=== PATIENT | female | born 1970 | race Caucasian/White ===

== ENCOUNTER 2017-03-14 11:26 | Emergency (ER) | payer OTHER ==
[~2017-03-14] VITALS: Ht 175.3 cm; Wt 71.5 kg
[~2017-03-14 11:26] MED LIST: MAXA10TA2 PO; SERT100 PO
[2017-03-14 11:29] VITALS: BP 84/57; PULSE 64; RESP 15; TEMP 98.1; O2SAT 100
[2017-03-14] MEDS ORDERED: ZOLO100T PO (11:40)
[2017-03-14] MEDS ORDERED: LIDOCAINE 1%/EPINEPHrine 1:100,000 SOLN 20 ML VIAL INFIL ONE (11:45)
[2017-03-14] MEDS ORDERED: TETANUS/DIPHTHERIA TOXOID ADULT 0.5 ML VIAL IM ONE (11:45)
[2017-03-14] MEDS ORDERED: DOXY100C PO (12:33)
--- NOTE | 2017-03-14 12:33 | PD ---
HPI Chief Complaint: Laceration/Skin Injury Time Seen by Provider: 12:13 Travel History International Travel<30 days: No Contact w/Intl Traveler<30days: No Traveled to known affect area: No History of Present Illness HPI 47-year-old female presents the emergency Department with laceration to the right lateral wrist, and multiple abrasions to the palms of both hands. Patient states she was kayaking with her brother, and was trying to get back into her kayaking when she slipped and fell backwards onto some oyster shells which cut her wrists and hands. Patient states she went home and showered and washed the blood and water as much as possible. She is here due to her laceration on the right lateral wrist. Patient is also needed a tetanus. Bleeding is currently controlled. Her pain is minimal. She has no known drug allergies. PFSH Past Medical History Depression: Yes Cancer: Yes (LIP) Cardiovascular Problems: Yes Diabetes: No Diminished Hearing: No Glaucoma: No Headaches: Yes (migraines) Hepatitis: No Hiatal Hernia: No Hypertension: Yes Inguinal Hernia: Yes Medical other: Yes (MIGRAINES) Immunizations Current: No Migraines: Yes Thyroid Disease: No Tetanus Vaccination: > 5 Years Influenza Vaccination: No ?: Not LMP: 2 WEEKS (STATED 03/14/17) : 2 Para: 2 Past Surgical History Abdominal Surgery: Yes (HERNIA REPAIR X 2; INGUINAL AND UMBILICAL) Appendectomy: Yes Cholecystectomy: Yes Genitourinary Surgery: Yes (HERNIA REPAIR X 2; INGUINAL AND UMBILICAL) Pacemaker: No Other Surgery: Yes Social History Alcohol Use: Yes (RARE) Tobacco Use: No Substance Use: No Allergies-Medications (Allergen,Severity, Reaction): Coded Allergies: No Known Allergies (Verified , 03/14/17) Reported Meds & Prescriptions Reported Meds & Active Scripts Active Doxycycline Hyclate 100 Mg Cap 100 Mg PO BID Reported Zoloft (Sertraline HCl) 100 Mg Tab 150 Mg PO DAILY Review of Systems Except as stated in HPI: all other systems reviewed are Neg General / Constitutional: No: Fever Eyes: No: Visual changes HENT: No: Headaches Cardiovascular: No: Chest Pain or Discomfort Respiratory: No: Shortness of Breath Gastrointestinal: No: Abdominal Pain Genitourinary: No: Dysuria Musculoskeletal: No: Pain Skin: Positive Lesions (see history present illness.), No Rash Neurologic: No: Weakness Psychiatric: No: Depression Endocrine: No: Polydipsia Hematologic/Lymphatic: No: Easy Bruising Physical Exam Narrative GENERAL: Patient appears in no acute distress. SKIN: Warm and dry. Normal color. Normal turgor. Patient has multiple superficial linear abrasions to both palms and the right base of the fifth finger, as well as a more significant full-thickness laceration to the right distal lateral wrist which does not involve any of the underlying muscle or tendon layers. All bleeding is currently controlled. HEAD: Atraumatic. Normocephalic. EYES: Pupils equal and round. No scleral icterus. No injection or drainage. ENT: No nasal bleeding or discharge. Mucous membranes pink and moist. Pharynx is clear. NECK: Trachea midline. Supple and nontender. CARDIOVASCULAR: Regular rate and rhythm. RESPIRATORY: No accessory muscle use. Clear to auscultation. Breath sounds equal bilaterally. MUSCULOSKELETAL: Extremities without clubbing, cyanosis, or edema. No obvious deformities. Full range of motion strength and sensation throughout. NEUROLOGICAL: Awake and alert. No obvious cranial nerve deficits. Motor grossly within normal limits. Five out of 5 muscle strength in the arms and legs. Normal speech. PSYCHIATRIC: Appropriate mood and affect; insight and judgment normal. Data Data Last Documented VS Vital Signs Date Time Temp Pulse Resp B/P Pulse Ox O2 Delivery O2 Flow Rate FiO2 03/14/17 11:29 98.1 64 15 84/57 100 Orders Tetanus/Diphtheria Tox Adult (Tetanus/Di (03/14/17 11:45) Lidocai-Epi 1%-1:100,000 Inj (Xylocaine- (03/14/17 11:45) MDM Medical Decision Making Medical Screen Exam Complete: Yes Emergency Medical Condition: Yes Differential Diagnosis Laceration right wrist. Multiple abrasions. Marine environment injury. Narrative Course Patient medically stable at time of exam. Wounds were all cleansed with Betadine. Patient given tetanus IM. Large laceration to the right lateral wrist was sutured. Please see procedure note. Multiple abrasions to the right hand and left hand were sealed with Dermabond. Patient placed on doxycycline 100 mg twice a day 5 days. Sutures should remain in place for 7-10 days. Patient take Tylenol or ibuprofen for discomfort. Patient follow with her primary care physician or return here for suture removal or sooner as needed. Procedures Procedure Narrative LACERATION LOCATION: Right distal lateral wrist LENGTH: 4 cm NUMBER OF STITCHES/IMER: 6 interrupted horizontal mattress, one simple REPAIR: The area of the laceration was prepped with Betadine and sterilely draped. The laceration was infiltrated with 400 mg 1% lidocaine with epinephrine. The wound was copiously irrigated and explored without evidence of foreign body, tendon injury or neurovascular injury. The wound was closed using 6-0 Prolene. This was a single layer repair. A sterile dressing was applied. The patient was advised to keep the dressing clean and dry. Patient tolerated the procedure well. Diagnosis Primary Impression: Laceration of right wrist without complication Qualified Code: S61.511A - Laceration of right wrist without complication, initial encounter Additional Impressions: Abrasion of hand and fingers Qualified Code: S60.519A - Abrasion of hand and fingers, unspecified laterality, initial encounter Contact with marine animal as cause of accidental injury Qualified Code: W56.89XA - Contact with marine animal as cause of accidental injury, initial encounter Patient Instructions: Abrasion (ED), General Instructions, Laceration (ED), Marine Animal Bite or Sting (ED) Additional Instructions: Wounds were all cleansed with Betadine. Patient given tetanus IM. Large laceration to the right lateral wrist was sutured. Please see procedure note. Multiple abrasions to the right hand and left hand were sealed with Dermabond. Patient placed on doxycycline 100 mg twice a day 5 days. Sutures should remain in place for 7-10 days. Patient take Tylenol or ibuprofen for discomfort. Patient follow with her primary care physician or return here for suture removal or sooner as needed. Scripts Doxycycline Hyclate 100 Mg Dks141 Mg PO BID #10 CAP Ref 0 Prov:Elba Moe MD 03/14/17 Disposition: 01 DISCHARGE HOME Condition: Stable Elias De La Fuente March 14, 2017 12:33
== END 2017-03-14 12:48 | disposition home or self-care (01) ==
LOC: PHEFT 11:26
DX: S61.511A Laceration without foreign body of right wrist, initial encounter (principal); S60.511A Abrasion of right hand, initial encounter; F32.9 Major depressive disorder, single episode, unspecified; I10 Essential (primary) hypertension; Z23 Encounter for immunization; W01.0XXA Fall on same level from slipping, tripping and stumbling without subsequent striking against object, initial encounter; Y93.89 Activity, other specified; Y92.814 Boat as the place of occurrence of the external cause
CPT/HCPCS: 12002; 90471; 90714

== ENCOUNTER → 2017-06-14 | Outpatient (CLI) | payer OTHER ==
[~2017-06-14] MED LIST changes: +DOXY100C PO; -MAXA10TA2 PO; -SERT100 PO; +ZOLO100T PO
[2017-06-14 09:51] LABS: ANION GAP 5 MEQ/L (5-15); AST (GOT) 20 U/L (15-37); BICARBONATE 30.4 MEQ/L (21.0-32.0); BLOOD UREA NITROGEN 13 MG/DL (7-18); CHLORIDE 105 MEQ/L (98-107); GLOMERULAR FILTRATION RATE 67 ML/MIN (>89); GLUCOSE,FASTING 85 MG/DL (74-99); POTASSIUM 3.8 MEQ/L (3.5-5.1); SODIUM (NA) 140 MEQ/L (136-145)
[2017-06-14 10:03] LABS: ALKALINE PHOSPHATASE 68 U/L (45-117); ALT (GPT) 24 U/L (10-53); TOTAL BILIRUBIN ADULT 0.7 MG/DL (0.2-1.0)
[2017-06-15 23:55] LABS: THYROGLOB ABS LESS THAN 1 IU/mL (< OR = 1)
== END ==
LOC: CLAB 08:02
DX: E21.1 Secondary hyperparathyroidism, not elsewhere classified (principal); E03.9 Hypothyroidism, unspecified; E27.9 Disorder of adrenal gland, unspecified
CPT/HCPCS: 36415; 80053; 82306; 82533; 83970; 84439; 84443; 86376; 86800

== ENCOUNTER → 2017-11-02 | Outpatient (CLI) | payer OTHER ==
[~2017-11-02] MED LIST changes: -DOXY100C PO; +LEVO.075 PO; +MAXA10TA2 PO; +MULT-65 PO
[2017-11-02 11:47] LABS: AUTOMATED NEUTROPHIL # 6.9 TH/MM3 (1.8-7.7); BASOPHIL # 0.1 TH/MM3 (0-0.2); BASOPHIL % 0.9 % (0.0-2.0); EOSINOPHIL % 0.4 % (0.0-4.0); HEMATOCRIT 42.9 % (35.0-46.0); HEMOGLOBIN 14.7 GM/DL (11.6-15.3); LYMPH % 21.1 % (9.0-44.0); LYMPHOCYTE # 2.1 TH/MM3 (1.0-4.8); MEAN CELL VOLUME 92.8 FL (80.0-100.0); MEAN CORPUSCULAR HEMOGLOBIN 31.8 PG (27.0-34.0); MEAN CORPUSCULAR HGB CONC 34.2 % (32.0-36.0); MONO % 9.2 % (0.0-8.0); MONOCYTE # 0.9 TH/MM3 (0-0.9); NEUT % 68.4 % (16.0-70.0); PLATELET COUNT 257 TH/MM3 (150-450); RED BLOOD COUNT 4.62 MIL/MM3 (4.00-5.30); RED CELL DISTRIBUTION WIDTH 13.1 % (11.6-17.2)
[2017-11-02 11:54] LABS: BILIRUBIN, URINE NEG (NEG); BLOOD, URINE NEG (NEG); GLUCOSE,URINE NEG (NEG); KETONE, URINE NEG (NEG); NITRITE,URINE NEG (NEG); SQUAMOUS EPITHELIAL CELL URINE <1 /hpf (0-5); URINE COLOR LIGHT-YELLOW (YELLW/STRAW); URINE LEUKOCYTE ESTERASE NEG (NEG)
[2017-11-02 12:55] LABS: ALT (GPT) 21 U/L (10-53); AST (GOT) 15 U/L (15-37); BICARBONATE 26.6 MEQ/L (21.0-32.0); BLOOD UREA NITROGEN 17 MG/DL (7-18); CALCIUM 8.9 MG/DL (8.5-10.1); CHLORIDE 104 MEQ/L (98-107); CREATININE 0.75 MG/DL (0.50-1.00); GLOMERULAR FILTRATION RATE 83 ML/MIN (>89); GLUCOSE,FASTING 76 MG/DL (74-99); SODIUM (NA) 138 MEQ/L (136-145)
[2017-11-02 12:59] LABS: ALKALINE PHOSPHATASE 57 U/L (45-117); TOTAL BILIRUBIN ADULT 0.7 MG/DL (0.2-1.0); TOTAL PROTEIN 7.4 GM/DL (6.4-8.2)
== END ==
LOC: CPRE 10:41
PROVIDERS: ATTEND Obstetrics & Gynecology Gynecology
DX: Z01.812 Encounter for preprocedural laboratory examination (principal); Z01.818 Encounter for other preprocedural examination; N39.3 Stress incontinence (female) (male)
CPT/HCPCS: 36415; 80053; 81001; 84703; 85025

== ENCOUNTER → 2017-11-09 | Day surgery (SDC) | payer OTHER ==
--- NOTE | 2017-11-01 12:43 | MH ---
cc: SABINO ZAMORA MD, PATRICIA DATE OF ADMISSION: 11/09/2017 DATE OF 1970 REASON FOR ADMISSION Scheduled for admission on November 09 for a transobturator sling. HISTORY OF PRESENT ILLNESS The patient is a 47-year-old white female, 2, para 2, who had issues with stress urinary incontinence. This started as more of an issue of the of her last child. At this point it is impacting negatively on her quality of life and interfering with her chance to exercise. PAST MEDICAL HISTORY The patient's medical history is negative for heart, lung, liver disease, hypertension, diabetes, stroke. She does have a history with hypothyroidism. MEDICATIONS Synthroid 75 mg daily. PAST SURGICAL HISTORY 1. Appendectomy. 2. Cholecystectomy. 3. Hernia repair, umbilical and left inguinal. OB HISTORY Two vaginal deliveries. FAMILY HISTORY Noncontributory. SOCIAL HISTORY Does not smoke, take alcohol or drugs. . Has a good social support. Works at [employer] in the [employer]. FAMILY HISTORY Noncontributory. REVIEW OF SYSTEMS As above. No chest pain, orthopnea, PND. No nausea, vomiting or chills. No vaginal bleeding or discharge. Remainder of 14-point review is negative. PHYSICAL EXAMINATION VITAL SIGNS: She is afebrile. Vital signs stable. Blood pressure is 120/70, height is 5'9", weight 150, BMI is 22. GENERAL: The patient is alert and oriented, in no acute distress. No sign of cognitive dysfunction nor depression. HEENT: Within normal limits. NECK: Supple. No JVD. CHEST: Clear. HEART: Regular rate and rhythm. ABDOMEN: Soft, nontender. No hepatosplenomegaly. No CVA tenderness. PELVIC: Exam will be detailed under anesthesia. In the office we note POP-Q score: Aa is -1, Ap is -1. Point C is -6. Genital hiatus is 3. Perineal body is 5. Total vaginal length is 10. Further exam under anesthesia. Postvoid residual is 75. The hypermobility of urethra was noted at 30 degrees plus. EXTREMITIES: Normal. SKIN: Without rashes. NEUROLOGIC EXAM: Nonfocal. No DVT signs. ASSESSMENT Patient with stress urinary incontinence documented on urodynamic studies. She has no sign of significant retention, does have hypermobility, no sign of detrusor instability or neuromuscular disorder. At this point we have discussed extensively the risks, benefits and alternatives to the planned procedure including damage to surrounding organs, bleeding, infection, dyspareunia, sling erosion and also failure of sling to improve incontinence issues. The patient has made informed choice to proceed. We anticipate outpatient procedure. She is to have DVT prophylaxis with sequential compression device, antibiotic prophylaxis, Ancef 2 grams. Anticipate outpatient procedure. The patient has requested an all female team and we can try to accommodate her but no guarantees were made in that regard. MD GABRIELA Guevara/FREDERICK /12:13 PM /12:18 PM
[~2017-11-09] VITALS: Ht 175.3 cm; Wt 69.9 kg
[~2017-11-09] MED LIST changes: +*MEPERIDINE 25 MG INJ VIAL PERIprocedural Use ONLY ONE; +APREPITANT 40 MG CAP ONE; +CHLORHEXIDINE GLUCONATE 2 % 1 PACK (2 CLOTHS) TOPICAL PRN; +DEXAMETHASONE SOD PHOS 4 MG/ML VIAL IV ONE; +DO NOT ADM ANY ANTICOAGULANT DRUGS PRN; +FAMOTIDINE 20 MG/2 ML VIAL ONE; +KETOROLAC TROMETHAMINE 30 MG/ML (IVP) VIAL IM PRN; +KETOROLAC TROMETHAMINE 30 MG/ML (IVP) VIAL IV PUSH ONE; +KETOROLAC TROMETHAMINE 30 MG/ML (IVP) VIAL IV PUSH PRN; +LACTATED RINGER'S 1000 ML IV PRN; +LIDOCAINE 0.5%/EPINEPHrine 1:200,000 SOLN 50 ML VIAL ONE; +LIDOCAINE HCL 1% PF 5 ML SYRINGE OTHER ONE; +METOPROLOL TARTRATE 25 MG TAB PO PRN; +MIDAZOLAM HCL 2 MG/2 ML VIAL ONE; +ONDANSETRON HCL 4 MG/2 ML VIAL IV ONE; +ONDANSETRON HCL 4 MG/2 ML VIAL IV PUSH PRN; +POVIDONE IODINE 5% (ANTISEPSIS KIT) 4 APPLICATIONS EACH NARE PRN; +PROPOFOL 200 MG/20 ML AMP IV ONE; +SODIUM CHLORID 0.9% 500 ML IV PRN; +ceFAZolin 2 GM PREMIX 50 ML IV SCH; +ePHEDrine/NS 25 MG/5 ML SYRINGE IV ONE; +traMADol HCL 50 MG TAB PO PRN
[2017-11-09 12:40] VITALS: BP 147/85; PULSE 89; RESP 18; TEMP 98.7; O2SAT 96
--- NOTE | 2017-11-10 20:16 | MP ---
cc: SABINO ZAMORA DATE OF SURGERY 11/09/17 PREOPERATIVE DIAGNOSES 1. Stress urinary continence 2. Cystocele. POSTOPERATIVE DIAGNOSES 1. Stress urinary incontinence with (code N39.3). 2. Cystocele midline (N81.11). PROCEDURE 1. Transobturator sling Dontrell product, Desera polypropylene sling (code 29420) 2. Anterior repair, (code 93448), 3. Diagnostic cystoscopy (code 52,000) SURGEON Erendira Zamora MD ANESTHESIA Laryngeal mask BLOOD LOSS 20 mL [employer] [place] staff x2 FLUIDS Crystalloid URINE OUTPUT 100 mL FINDINGS Genitalia normal, pop Q score Aa is zero, Ap is -1, point C is -6 with IUD strings visible, total vaginal length is 10. Genital hiatus is six. Perineal body is 4. External hemorrhoids noted. Normal rectal exam. Following repair Aa is -3. Cystoscopy following sling placement shows normal trigone, good coaptation of urethra. Ureteral orifice patent x2. Ureteral orifices patent x2. Dome and base of bladder normal. SPECIMENS Vaginal mucosa trimmed but not sent COMPLICATIONS None. DRAINS Elias catheter DISPOSITION Recovery stable. PROPHYLAXIS Antibiotic prophylaxis Ancef 2 grams, DVT prophylaxis sequential compression device. Time-out procedure and identification per protocol. PROCEDURE IN DETAIL The patient was taken to the operating theater, identified, prepped, draped in fashion for planned procedure. She was in dorsal lithotomy position with careful attention paid to placement of legs in stirrups to avoid undue stress to sensitive neurovascular structures. Above findings noted. Neurovascular ____ documented. Elias catheter was placed. The obturator and foramen were identified, marked and infiltrated with epinephrine lidocaine solution. Length of the urethra was documented by the position of the Elias bulb. The vaginal cuff was infiltrated with epinephrine Lidocaine solution. Incision was made with sharp scissors, mobilized the urethra with no damage or spill of methylene blue (it should be noted that methylene blue was instilled into the bladder prior to case close) The free hook was placed from a lateral to medial position on each side. There was no buttonholing, no damage to the bladder. We then placed the polypropylene sling using a scalpel handle as a spacer and performed anterior repair in standard fashion without complication using delayed absorbable suture. Hemostasis was achieved and we did use hemostatic matrix for added reassurance, closed the vaginal mucosa with a series of [id number] sutures. Cystoscopy was performed using 17-Lao bridge and 7 degree scope. Above findings noted. The patient tolerated procedure well, went to recovery in stable condition, mostly will be discharged home after a voiding trial. MD GABRIELA Guevara/ /11:27 AM /7:58 PM
== END | disposition home or self-care (01) ==
LOC: HSDC 07:28
PROVIDERS: ATTEND Obstetrics & Gynecology Gynecology
DX: N39.3 Stress incontinence (female) (male) (principal); E03.9 Hypothyroidism, unspecified; N81.10 Cystocele, unspecified; K64.4 Residual hemorrhoidal skin tags
CPT/HCPCS: 00860; 00942; 57240; 57288; C1771; J1100; J1885; J2175; J2250; J2405; J3010; J7120; J8501

== ENCOUNTER → 2017-12-24 | Outpatient (CLI) | payer OTHER ==
[~2017-12-24] MED LIST changes: -*MEPERIDINE 25 MG INJ VIAL PERIprocedural Use ONLY ONE; -APREPITANT 40 MG CAP ONE; -CHLORHEXIDINE GLUCONATE 2 % 1 PACK (2 CLOTHS) TOPICAL PRN; -DEXAMETHASONE SOD PHOS 4 MG/ML VIAL IV ONE; -DO NOT ADM ANY ANTICOAGULANT DRUGS PRN; -FAMOTIDINE 20 MG/2 ML VIAL ONE; -KETOROLAC TROMETHAMINE 30 MG/ML (IVP) VIAL IM PRN; -KETOROLAC TROMETHAMINE 30 MG/ML (IVP) VIAL IV PUSH ONE; -KETOROLAC TROMETHAMINE 30 MG/ML (IVP) VIAL IV PUSH PRN; -LACTATED RINGER'S 1000 ML IV PRN; -LIDOCAINE 0.5%/EPINEPHrine 1:200,000 SOLN 50 ML VIAL ONE; -LIDOCAINE HCL 1% PF 5 ML SYRINGE OTHER ONE; -METOPROLOL TARTRATE 25 MG TAB PO PRN; -MIDAZOLAM HCL 2 MG/2 ML VIAL ONE; -ONDANSETRON HCL 4 MG/2 ML VIAL IV ONE; -ONDANSETRON HCL 4 MG/2 ML VIAL IV PUSH PRN; -POVIDONE IODINE 5% (ANTISEPSIS KIT) 4 APPLICATIONS EACH NARE PRN; -PROPOFOL 200 MG/20 ML AMP IV ONE; -SODIUM CHLORID 0.9% 500 ML IV PRN; -ceFAZolin 2 GM PREMIX 50 ML IV SCH; -ePHEDrine/NS 25 MG/5 ML SYRINGE IV ONE; -traMADol HCL 50 MG TAB PO PRN
[2017-12-24 11:14] LABS: FREE T4 1.1 NG/DL (0.76-1.46)
== END ==
LOC: CLAB 10:13
DX: E03.9 Hypothyroidism, unspecified (principal)
CPT/HCPCS: 36415; 84439; 84443